=== PATIENT | female | born 1965 | race Caucasian/White ===

== ENCOUNTER 2017-10-15 13:31 | Emergency (ER) | payer OTHER ==
[~2017-10-15] VITALS: Ht 167.6 cm; Wt 74.8 kg
--- NOTE | 2017-10-15 14:37 | RADIOLOGY REPORT ---
EXAMINATION: XR CERVICAL SPINE CLINICAL INFORMATION: Cervical radiculopathy. COMPARISON: No relevant prior imaging. TECHNIQUE: 3 views of the cervical spine were obtained. FINDINGS: Alignment is normal. Vertebral body heights are preserved. No acute fracture. No abnormal prevertebral soft tissue swelling. There is slight loss of intervertebral disc height with associated disc osteophyte spurring at the level of C6-C7. Soft tissues of the neck are unremarkable. Visualized lung apices are clear. IMPRESSION: Mild degenerative spondylosis at C6-C7.
--- NOTE | 2017-10-15 14:39 | RADIOLOGY REPORT ---
EXAMINATION: XR SHOULDER, LEFT CLINICAL INFORMATION: Pain and tingling left upper extremity. COMPARISON: No relevant prior imaging. TECHNIQUE: Three views of the left shoulder. FINDINGS: There is no acute fracture or dislocation. The glenohumeral joint and acromioclavicular joint are normal. The acromiohumeral interval is maintained. Soft tissues are unremarkable. Visualized portions of the left hemithorax reveal no abnormal finding. IMPRESSION: Unremarkable radiographs of the left shoulder.
--- NOTE | 2017-10-15 15:18 | ED GENERAL ADULT ---
History of Present Illness General Chief Complaint: General Adult Stated Complaint: S/P MESSAGE LAST WEEK C/O NUMBNESS IN L ARM Source: patient Exam Limitations: no limitations Vital Signs & Intake/Output Vital Signs & Intake/Output Vital Signs Date Time Temp Pulse Resp B/P B/P Pulse O2 O2 Flow FiO2 Mean Ox Delivery Rate 10/15 1542 74 124/83 10/15 1521 Room Air 10/15 1343 98.0 74 18 133/83 99 Room Air Allergies Coded Allergies: MDX - SULFA (sulfonamide) (SULFA (SULFONAMIDE)) (UNKNOWN 08/25/13) Reconcile Medications Naproxen (Naprosyn) 500 MG TABLET 1 TAB PO BID PRN INFLAMMATION Triage Note: 52F HAD A MASSAGE LAST MONDAY, NOW HAS TINGLING IN TRAPEZIUS, INTO LEFT SIDE OF FACE AND DOWN ARM INTO THUMB. DENIES NUMBNESS. FULL ROM. EQUAL HAND GRASPS, BILAT UPPER EXT STRENGTH 5/5. NO FACIAL DROOP OR SLURRED SPEECH. DENIES HEADACHE. PERRLA. REFERRED TO ED BY DR BARAHONA. DEMONSTRATES FULL ROM OF HEAD/NECK. HAS NOT TAKEN ANYTHING FOR SYMPTOMS. MEDICATED WITH MOTRIN IN TRIAGE Triage Nurses Notes Reviewed? yes Onset: Gradual Duration: day(s): (4) Timing: no prior history Injury Environment: [place] Severity: moderate No Modifying Factors: none HPI: Patient is a 52-year-old female presenting to the emergency department chief complaining of left-sided neck pain and left arm pain and tingling sensation of something going on for the past 4 days. Patient reports that symptoms started after a deep tissue massage. Has not been taking anything help with symptoms he denies chest pain palpitations or shortness of breath. Pain radiates from the left side of the neck. Denies shortness of breath. No confusion or headaches. Denies any leg edema or swelling. No history of pulmonary left. (Liliana Nino) Past History Travel History Traveled to [place] past 21 day No Medical History Any Pertinent Medical History? see below for history Neurological: MIGRAINES EENT: NONE Cardiovascular: NONE Respiratory: NONE Gastrointestinal: NONE Hepatic: NONE Renal: NONE Musculoskeletal: BACK PAIN Psychiatric: NONE Endocrine: NONE Blood Disorders: NEUTROPENIA Tetanus Vaccine: Surgical History Surgical History: non-contributory Psychosocial History What is your primary language [place] Tobacco Use: Never used Family History Hx Contributory? No (Liliana Nino) Review of Systems Review of Systems Constitutional: Reports: no symptoms. Comments Review of systems: See HPI, All other systems negative. Constitutional, no chills fever or weight loss HEENT: No visual changes no sore throat no congestion Cardiovascular: No chest pain ,palpitation Skin, no jaundice no rashes Respiratory: No dyspnea cough sputum or hemoptysis GI: No nausea no vomiting : No dysuria No hematuria Muscle skeletal: no back pain Neurologic: no confusion Psych: No stress anxiety or depression,. Heme/endocrine: No bruising no bleeding no polyuria or polydipsia Immunology: No splenectomy or history of AIDS (Liliana Nino) Physical Exam Physical Exam General Appearance: well developed/nourished, no apparent distress, alert, awake , comfortable Comments: Well-developed well-nourished person in no acute distress HEENT: Atraumatic, normocephalic or edema. Neck: Mild discomfort to palpation over the left cervical paraspinal muscles. Full range of motion. Back: Nontender, full range of motion. Cardiovascular: Regular rate and rhythms no murmurs rubs or gallops Respiratory: Chest nontender. No respiratory distress.breath sounds clear to auscultation bilaterally Extremity: No edema, radial pulses are 2+ bilaterally. Full range of motion of left upper extremities without difficulty or pain. Muscular strength is 5 out of 5 in the upper extremities bilaterally. Neuro: Alert oriented x3, motor sensory normal and the upper extremities bilaterally. No facial droop. Symmetric sensation on the face. Skin: No appreciable rash on exposed skin, skin is warm and dry. Psych: Mood and affect is normal, memory and judgment is normal. Core Measures ACS in differential dx? No CVA/TIA Diagnosis: No Sepsis Present: No Sepsis Focused Exam Completed? No (Liliana Nino) Progress Differential Diagnoses I considered the following diagnoses in my evaluation of the patient: Cervical radiculopathy, muscle strain, contusion, neuropathy Plan of Care: Orders Procedure Date/time Status EKG 10/15 1526 Active D/W DR ALBRECHT AND HE AGREES WITH PLAN. Diagnostic Imaging: Viewed by Me: Radiology Read. Discussed w/RAD: Radiology Read. Radiology Impression: ATIENT: LILIANA CHILEL PRESENT AGE: 52 PATIENT ACCOUNT NO: [id number] : 66 LOCATION: [facility] ORDERING PHYSICIAN: Andrew Rush DO (TBS) SERVICE DATE: 10/15/17 EXAM TYPE: RAD - XRY-SHOULDER COMPLETE-LEFT EXAMINATION: XR SHOULDER, LEFT CLINICAL INFORMATION: Pain and tingling left upper extremity. COMPARISON: No relevant prior imaging. TECHNIQUE: Three views of the left shoulder. FINDINGS: There is no acute fracture or dislocation. The glenohumeral joint and acromioclavicular joint are normal. The acromiohumeral interval is maintained. Soft tissues are unremarkable. Visualized portions of the left hemithorax reveal no abnormal finding. IMPRESSION: Unremarkable radiographs of the left shoulder. DICTATED BY: Gianni Sanderson MD DATE/TIME DICTATED:10/15/171434 [employer] TROUBLE SHOOTER: LANE DATE/TIME TRANSCRIBED:10/15/171434 CONFIDENTIAL, DO NOT COPY WITHOUT APPROPRIATE AUTHORIZATION. <Electronically signed in Other Vendor System> SIGNED BY: Gianni Sanderson MD 10/15/171438, PATIENT: LILIANA CHILEL PRESENT AGE: 52 PATIENT ACCOUNT NO: [id number] : 66 LOCATION: [facility] ORDERING PHYSICIAN: Andrew Rush DO (TBS) SERVICE DATE: 10/15/17 EXAM TYPE: RAD - XRY-CERV SPINE 3 VIEWS OR LESS EXAMINATION: XR CERVICAL SPINE CLINICAL INFORMATION: Cervical radiculopathy. COMPARISON: No relevant prior imaging. TECHNIQUE: 3 views of the cervical spine were obtained. FINDINGS: Alignment is normal. Vertebral body heights are preserved. No acute fracture. No abnormal prevertebral soft tissue swelling. There is slight loss of intervertebral disc height with associated disc osteophyte spurring at the level of C6-C7. Soft tissues of the neck are unremarkable. Visualized lung apices are clear. IMPRESSION: Mild degenerative spondylosis at C6-C7. DICTATED BY: Gianni Sanderson MD DATE/TIME DICTATED:1431 [employer] TROUBLE SHOOTER:LANE DATE/TIME TRANSCRIBED:10/15/171431 CONFIDENTIAL, DO NOT COPY WITHOUT APPROPRIATE AUTHORIZATION. <Electronically signed in Other Vendor System> SIGNED BY: Gianni Sanderson MD 10/15/17 1437 Initial ED EKG: SINUS RHYTHM AT 56 BPM. (Liliana Nino) Departure Departure Time of Disposition: 1528 Disposition: HOME OR SELF CARE Condition: Stable Clinical Impression Primary Impression: Cervical radiculopathy Referrals: Melissa JOSÉ,Rocky Salas (PCP/Family) Additional Instructions: Follow-up with your primary care physician this week as scheduled. Take antibiotics as prescribed. Return for worsening symptoms or concerns. Departure Forms: Customer Survey General Discharge Information Prescriptions: Current Visit Scripts Naproxen (Naprosyn) 1 TAB PO BID PRN INFLAMMATION #20 TAB (Liliana Nino) PA/TEMPERING MACHINE OPERATOR Co-Sign Statement Statement: ED Attending supervision documentation- [] I saw and evaluated the patient. I have also reviewed all the pertinent lab results and diagnostic results. I agree with the findings and the plan of care as documented in the PA's/TEMPERING MACHINE OPERATOR's documentation. [X] I have reviewed the ED Record and agree with the PA's/TEMPERING MACHINE OPERATOR's documentation. [] Additions or exceptions (if any) to the PAs/TEMPERING MACHINE OPERATOR's note and plan are summarized below: [] (Noah JOSÉ,Toby Pisano) Critical Care Note Critical Care Note Critical Care Time: non-applicable (Liliana Nino)
[2017-10-15] MEDS ORDERED: NAPROSYN500 M1 PO (15:32)
[2017-10-15 15:42] VITALS: BP 124/83
== END 2017-10-15 15:43 ==
LOC: ERH 13:31
DX: M54.12 Radiculopathy, cervical region (principal)
CPT/HCPCS: 72040; 73030-LT; 93005; 93010